=== PATIENT | female | born 1975 | race Hispanic/Latino ===

== ENCOUNTER 2023-07-01 20:26 | Emergency (ER) | payer OTHER ==
[~2023-07-01] VITALS: Ht 165.1 cm; Wt 74.4 kg
[2023-07-01] MEDS ORDERED: ONDANSETRON 4MG INJ ONE (20:52)
[2023-07-01] MEDS ORDERED: MORPHINE 2 MG SYG ONE (20:52)
[2023-07-01 20:55] LABS: BASOPHILS # (AUTO) 0.06 K/uL (0.00-0.20); BASOPHILS % (AUTO) 0.5 % (0.0-5.0); EOSINOPHILS # (AUTO) 0.33 K/uL (0.00-0.70); HEMATOCRIT 37.4 % (36-48); IMMATURE GRANULOCYTE ABSOLUTE 0.02 K/uL (0-1); LYMPHOCYTES # (AUTO) 3.1 K/uL (1.0-4.8); LYMPHOCYTES % (AUTO) 28.1 % (21.0-51.0); MEAN CORPUSCULAR HEMOGLOBIN 32.2 pg (27.0-33.0); MEAN CORPUSCULAR HGB CONC 31.8 g/dL (32.0-36.0); MEAN CORPUSCULAR VOLUME 101.1 fL (79-99); MONOCYTES # (AUTO) 0.6 K/uL (0.1-1.0); NEUTROPHILS % (AUTO) 63.2 % (40.0-77.0); PLATELET COUNT (AUTO) 182 K/uL (130-400); RED CELL DISTRIBUTION WIDTH 13.6 % (11.0-15.5)
[2023-07-01] MEDS ORDERED: ONDANSETRON 4MG INJ IVP ONE (21:00)
[2023-07-01] MEDS ORDERED: MORPHINE 2 MG SYG IVP ONE (21:00)
[2023-07-01 21:05] LABS: CREATININE 1.2 mg/dL (0.5-1.5); POTASSIUM 3.8 mmol/L (3.5-5.1)
[2023-07-01 21:14] LABS: BILIRUBIN,TOTAL 0.4 mg/dL (0.2-1.0); TOTAL PROTEIN, SERUM 6.9 g/dL (6.0-8.3)
[2023-07-01 21:27] LABS: AMYLASE 40 U/L (25-115); CREATINE KINASE, TOTAL 81 U/L (21-232)
[2023-07-01] MEDS ORDERED: IOHEXOL-350 75 ML VIAL IV ONE (21:41)
[2023-07-01] MEDS ORDERED: POLY17PO4 PO (22:55)
[2023-07-01] MEDS ORDERED: MAGNESIUM HYDROXIDE 30 ML/UDCUP PO SCH (23:00)
[2023-07-01] MEDS ORDERED: MAGNESIUM HYDROXIDE 30 ML/UDCUP ONE (23:04)
[2023-07-01 23:21] LABS: APPEARANCE,URINE CLOUDY (CLEAR); BILIRUBIN,URINE NEGATIVE (NEGATIVE); COLOR,URINE LIGHT-YELLOW (YELLOW); GLUCOSE, URINE (UA) NEGATIVE (NEGATIVE); KETONES,URINE NEGATIVE (NEGATIVE); LEUKOCYTE ESTERASE ,URINE 500 Leu/uL (NEGATIVE); NITRATE,URINE NEGATIVE (NEGATIVE); PROTEIN,URINE 20 mg/dL (NEGATIVE); UROBILINOGEN,URINE 0.2 mg/dL (0.2-1.0)
[2023-07-01 23:22] LABS: ADD UA MICROSCOPIC YES
[2023-07-01 23:23] VITALS: BP 114/60; PULSE 90; RESP 14; O2SAT 98
[2023-07-01 23:25] LABS: HCG,QUALITATIVE URINE NEGATIVE (NEGATIVE)
[2023-07-01] MEDS ORDERED: CEPHALEXIN 500 MG CAPSULE PO ONE (23:30)
[2023-07-01 23:34] LABS: BACTERIA,URINE None Seen /HPF (None Seen)
[2023-07-01 23:35] LABS: SQUAMOUS EPITHELIAL CELL,UR Few /HPF (0-2); WBC,URINE 26-50 /HPF (0-1)
[2023-07-01 23:36] LABS: NON-SQUAMOUS EPITHELIAL CELL Rare /HPF (0-2)
[2023-07-01] MEDS ORDERED: CEFTRIAXONE 1G VIAL ONE (23:39)
[2023-07-01] MEDS ORDERED: CEFU500T67 PO (23:40)
[2023-07-02] MEDS ORDERED: CEFTRIAXONE 1G VIAL IVPB ONE
== END 2023-07-01 23:56 | disposition home or self-care (01) ==
LOC: EDH 20:26
DX: K59.00 Constipation, unspecified (principal); Z90.49 Acquired absence of other specified parts of digestive tract; Z98.890 Other specified postprocedural states
CPT/HCPCS: 99284; 74177; 96374; 96375; 82150; 82550; 84484; 80053; 83690; 85025; 87077; 87088; 87186; 83605; 81001; 81025; 36415; 51701; 93005; J2270; J0696; J2405; Q9967

== ENCOUNTER 2024-09-07 11:19 | Emergency (ER) | payer OTHER ==
[~2024-09-07] VITALS: Ht 165.1 cm; Wt 83.6 kg
[~2024-09-07 11:19] MED LIST: CEFU500T67 PO; POLY17PO4 PO
--- NOTE | 2024-09-07 11:33 | ERN ---
General Chief Complaint: Wrist Pain/Injury Stated Complaint: PAIN IN WRIST DUE TO FALL Time Seen by MD: 11:20 Time Seen by Midlevel: 11:20 Source: patient History of Present Illness Initial Comments Patient is a 49-year-old female with a past medical history of multiple strokes presenting to the emergency department after she sustained a mechanical ground level fall one week ago. She states she was playing around with her dog when her dog got in the way and she fell onto her right side. She has been having pain to her right forearm. She does report hitting the right side of her head. Denies any loss of consciousness. She states she was chronic head pain due to your history of strokes but is concerned today because she did hit her head. She is on 2.5 mg of Eliquis twice a day. Denies any other concerns at this time. Allergies: Coded Allergies: No Known Allergies (Unverified Allergy, Unknown, 07/01/23) Home Meds Active Scripts Cefuroxime Axetil (Cefuroxime) 500 Mg Tablet, 500 MG PO BID, #20 TAB Prov:COSMO MCDONOUGH MD 07/01/23 Polyethylene Glycol 3350 (Miralax) 17 Gram Powd.pack, 17 GM PO DAILY, #30 UNITS Prov:COSMO MCDONOUGH MD 07/01/23 Past Medical History Past Medical History: CVA, Stroke, Other Medical History Other: SPLEEN INFARCT, FACTOR EIGHT. CVA X 5, BILATERAL WEAKNESS, SPEECH DIFFICUL Past Surgical History: Cholecystectomy, Other Surgical History Other: BRAIN Family History Family History: CAD Social History Social History: Negative, Lives with family ROS Dictation CONSTITUTIONAL: Negative except for HPI HEAD/FACE: Negative except for HPI EENT: Negative except for HPI RESPIRATORY: Negative except for HPI GASTROINTESTINAL/ABDOMINAL: Negative except for HPI GENITOURINARY: Negative except for HPI MUSCULOSKELETAL: Negative except for HPI INTEGUMENTARY: Negative except for HPI NEUROLOGICAL/PSYCH: Negative except for HPI HEMATOLOGIC/LYMPHATIC: Negative except for HPI All Systems Negative, Except as noted above. 13 point review of systems assessed and all negative except for above. Physical Exam Physical Exam Dictation Vital Signs reviewed General Appearance: Alert, oriented x 3, no acute distress, well developed, nourished. Head and Face: non-traumatic. Eyes: PERRL, pink conjunctivas, eyelid no trauma, anterior chamber with arcus senilis. Ears: Pinnas intact and no signs of trauma or erythema ear canals clear and no discharge TM no erythema Nose: No discharge, no bleeding. Oropharynx: Mouth normal, tongue pink, pharynx clear,no erythema, tonsils no exudates, no abscesses noted, mucous membrane moist Neck: Supple, non-tender, no thyromegaly, no masses, no JVD, no bruits Breast:Deferred Chest:No tenderness, no crepitus, no paradoxical movement, no retractions Lungs:Clear, well-ventilated, symmetric, no rales, no wheezing, no rhonchi, no stridor, good breath sounds bilaterally Heart: Regular rate, regular rhythm, no murmur, no gallops Vascular: no peripheral edema, Abdomen: Soft, positive bowel sounds, nondistended, no guarding, nontender, no rebound, no masses no hepatomegaly, no splenomegaly, no Peterson's sign, no hernias. Rectal: Deferred Genital: Deferred Neurological: Normal speech, motor function intact, sensory function intact Musculoskeletal: Neck nontender, full range of motion, back nontender, full range of motion, Extremities tenderness over the right distal forearm, no deformity noted, distal pulses intact, decreased sensation secondary to previous stroke Skin: Color pink, dry, no turgor, no rash, no lacerations, no abrasions, no contusions. Lymphatic: Deferred MDM MDM: Differential diagnosis: Closed head injury, fracture, contusion There are no social concerns with this patient. Prescription drug management Prescriptions will include: None Medical management and examination interpretation discussions were had by me with other qualified healthcare professionals as indicated for the patient's care. ED Course Orders Procedure Category Date Status Time Ct Head/Brain W/O CT 09/07/24 Resulted Contrast 11:28 Forearm 2vws Rt RAD 09/07/24 Taken 11:28 Vital Signs Date Time Temp Pulse Resp B/P (MAP) Pulse Ox O2 Delivery O2 Flow Rate FiO2 09/07/24 11:49 98.2 92 16 125/80 96 Room Air* 0 21 09/07/24 11:24 97.9 99 16 125/80 95 Room Air 0 [facility] [address] [place] [id number] IMAGING REPORT Signed PATIENT: EVIE GRAMAJO MR#: [id number] : 1975 SEX: F AGE: 49 LOCATION: [facility] ORDER 28 [facility]US: [facility] REPORT#: [id number] SERVICE 27 REASON: fall ORDERING PHYSICIAN: JET ZUÑIGA PROCEDURE: FORARMR - FOREARM 2VWS RT FOREARM 2VWS RT HISTORY: Status post fall COMPARISON: None TECHNIQUE: 2 images of right forearm were obtained. FINDINGS: There is no acute displaced fracture or dislocation. Radiocarpal joint space narrowing is seen. Degenerative changes are seen. IMPRESSION: 1. Findings as described above. DICTATED BY: GURMEET STONER MD DATE: 09/07/241216 ELECTRONICALLY SIGNED BY: GURMEET STONER MD DATE: 09/07/241221 [place] [address] IMAGING REPORT Signed PATIENT: EVIE GRAMAJO MR#: [id number] : 1975 SEX: F AGE: 49 LOCATION: ED ORDER 28 STATUS: REG ER REPORT#: [id number] SERVICE 27 REASON: fall/right sided head injury on blood thinners, hx of icb ORDERING PHYSICIAN: JET ZUÑIGA PROCEDURE: HEAD WO - CT HEAD/BRAIN W/O CONTRAST CT HEAD/BRAIN W/O CONTRAST HISTORY: Injury COMPARISON: None TECHNIQUE: Multiple sequential axial images of the head were obtained from the base of the skull through vertex. Patient was not given contrast through intravenous route. FINDINGS: The ventricles and extraventricular CSF spaces are dilated consistent with cerebral atrophy. Nonspecific white matter changes seen. Encephalomalacia changes are seen in the temporal lobes bilaterally. There is no midline shift, mass effect or herniation. No acute intracranial bleed is seen. Visualized portion of the paranasal sinuses are grossly within normal limits. IMPRESSION: 1. No acute intracranial bleed is seen. 2. Atrophy with white matter changes. Bilateral temporal lobe encephalomalacia changes. CT was performed with one or more following dose reduction techniques: automated exposure control, adjustment of the mA and kv according to patient's size, or use of a iterative reconstruction technique. DICTATED BY: GURMEET STONER MD DATE: 09/07/241209 ELECTRONICALLY SIGNED BY: GURMEET STONER MD DATE: 09/07/24 1219 DX & DISP Disposition: Discharge Departure Impression: Primary Impression: Fall Additional Impressions: Forearm contusion, Scalp contusion Condition: Stable Additional Instructions: Your right forearm x-ray does not show any evidence of an acute fracture or dislocation. Your CT scan of the head does not show any acute intracranial bleed or any other acute intracranial abnormality. You may take Tylenol as needed for pain. Follow up with your primary care doctor in 2-3 days for repeat evaluation. If you develop any new or worsening symptoms please report to the ER for further evaluation. Referrals: WILMAN PETERSON MD (PCP) Time of Disposition: 12:21 I have reviewed the case, and I agree with, Diagnosis and Plan I performed the substantive portion of the visit. I have reviewed and personally made and approve the management plan that is documented in the note by myself or the NATASHA. I acknowledge for responsibility for the patient's management plan. JET ZUÑIGA Sep 07, 2024 11:33
[2024-09-07 11:49] VITALS: BP 125/80; PULSE 92; RESP 16; TEMP 98.3; O2SAT 96
--- NOTE | 2024-09-07 12:19 | HMCIMG ---
CT HEAD/BRAIN W/O CONTRAST HISTORY: Injury COMPARISON: None TECHNIQUE: Multiple sequential axial images of the head were obtained from the base of the skull through vertex. Patient was not given contrast through intravenous route. FINDINGS: The ventricles and extraventricular CSF spaces are dilated consistent with cerebral atrophy. Nonspecific white matter changes seen. Encephalomalacia changes are seen in the temporal lobes bilaterally. There is no midline shift, mass effect or herniation. No acute intracranial bleed is seen. Visualized portion of the paranasal sinuses are grossly within normal limits. IMPRESSION: 1. No acute intracranial bleed is seen. 2. Atrophy with white matter changes. Bilateral temporal lobe encephalomalacia changes. CT was performed with one or more following dose reduction techniques: automated exposure control, adjustment of the mA and kv according to patient's size, or use of a iterative reconstruction technique.
--- NOTE | 2024-09-07 12:22 | HMCIMG ---
FOREARM 2VWS RT HISTORY: Status post fall COMPARISON: None TECHNIQUE: 2 images of right forearm were obtained. FINDINGS: There is no acute displaced fracture or dislocation. Radiocarpal joint space narrowing is seen. Degenerative changes are seen. IMPRESSION: 1. Findings as described above.
== END 2024-09-07 12:45 | disposition home or self-care (01) ==
LOC: EDH 11:19
DX: S50.11XA Contusion of right forearm, initial encounter (principal); S00.03XA Contusion of scalp, initial encounter; Z79.01 Long term (current) use of anticoagulants; Z86.73 Personal history of transient ischemic attack (TIA), and cerebral infarction without residual deficits; Z90.49 Acquired absence of other specified parts of digestive tract; W18.39XA Other fall on same level, initial encounter; Y93.89 Activity, other specified; Y92.89 Other specified places as the place of occurrence of the external cause; Y99.8 Other external cause status
CPT/HCPCS: 70450; 73090; 99284

== ENCOUNTER 2025-06-29 15:08 | Emergency (ER) | payer OTHER ==
[~2025-06-29] VITALS: Ht 165.1 cm; Wt 86.2 kg
[~2025-06-29 15:08] MED LIST changes: +AMIT75TA6 PO; +ATOR40TA69 PO; +BENZ200C53 PO; -CEFU500T67 PO; +HYDR-4068 PO; +LEVO75CA6 PO; +ONDA-243 PO; -POLY17PO4 PO; +QUET25TA36 PO; +[UNRECOGNIZED DRUG - CODE] IJ; +[UNRECOGNIZED DRUG - CODE] PO
--- NOTE | 2025-06-29 15:25 | ERN ---
ED Note History of Present Illness Stated Complaint: TOE PAIN Chief Complaint: Toe Pain/Injury Time Seen by MD: 15:09 Dictation: PATIENT IS A 50-YEAR-OLD FEMALE HERE WITH COMPLAINTS OF A POSSIBLE STUBBING INJURY AND PAIN TO HER LEFT 5TH TOE WITH BRUISING ONSET WAS YESTERDAY. SHE STATES THE DAY BEFORE SHE WAS FINE. SHE STATES SHE HAS HAS A HISTORY OF A PRIOR STROKE WITH A CHRONIC LEFT HEMIPARESIS AND MAY HAVE STOPPED IT. CAP REFILL IS BRISK TO THE TOE. SKIN IS INTACT NO FOOT PAIN. STATES SHE HAS A SLIGHT HEADACHE AND HAS NOT TAKEN ANYTHING WOULD LIKE SOME FOR PAIN TO Allergies: Coded Allergies: No Known Allergies (Unverified Allergy, Unknown, 07/01/23) Home Meds Reported Medications Hydrocodone/Acetaminophen (Hydrocodon-Acetaminophn 10-325) 10 Mg-325 Mg Tablet, 1 TAB PO QIDP PRN for pain for 5 Days, #20 TAB 0 Refills 03/12/25 Octreotide Acetate (Octreotide Acetate) 200 Mcg/Ml Vial, 200 MCG IJ BID, VIAL 03/12/25 Morphine Sulfate (Morphine Sulfate 15 mg Tab.sa) 15 Mg Tablet.er, 1 TAB PO [id number] PRN for pain for 5 Days, #10 TAB 0 Refills 03/12/25 Quetiapine Fumarate (Quetiapine Fumarate) 25 Mg Tablet, 2 TAB PO HS for 30 Days, #30 TAB 0 Refills 03/12/25 Atorvastatin Calcium (LIPITOR) 40 Mg Tablet, 1 TAB PO DAILY for 30 Days, #30 TAB 0 Refills 03/12/25 Benzonatate (Benzonatate) 200 Mg Capsule, 1 CAP PO TIDP PRN for cough, #21 CAP 0 Refills 03/12/25 Amitriptyline HCl (Amitriptyline HCl) 75 Mg Tablet, 1 TAB PO HS for 30 Days, #30 TAB 0 Refills 03/12/25 Ondansetron (Ondansetron Odt) 4 Mg Tab.rapdis, 1 TAB PO Q6HPRN PRN for nausea/vomiting for 4 Days, #16 TAB 0 Refills 03/12/25 Levothyroxine Sodium (Levothyroxine) 75 Mcg Capsule, 1 TAB PO DAILY for 30 Days, #30 CAP 0 Refills 03/12/25 Past Medical History Past Medical History: CVA, Stroke, Other Additional Past Medical Hx: SPLEEN INFARCT, FACTOR EIGHT. CVA X 5, BILATERAL WEAKNESS, SPEECH DIFFICUL Surgical History: Cholecystectomy, Other Surgical History Other: BRAIN Family History: CAD Social History: Negative, Lives with family History: Not Applicable RN Note Reviewed/Agreed w/PFSH: Yes Review of System Dictation CONSTITUTIONAL: NEGATIVE EXCEPT FOR HPI HEAD/FACE: NEGATIVE EXCEPT FOR HPI EENT: NEGATIVE EXCEPT FOR HPI RESPIRATORY: NEGATIVE EXCEPT FOR HPI GASTROINTESTINAL/ABDOMINAL: NEGATIVE EXCEPT FOR HPI GENITOURINARY: NEGATIVE EXCEPT FOR HPI MUSCULOSKELETAL: NEGATIVE EXCEPT FOR HPI LEFT 5TH TOE PAIN ECCHYMOSIS INTEGUMENTARY: NEGATIVE EXCEPT FOR HPI NEUROLOGICAL/PSYCH: NEGATIVE EXCEPT FOR HPI HEMATOLOGIC/LYMPHATIC: NEGATIVE EXCEPT FOR HPI ALL SYSTEMS NEGATIVE, EXCEPT NOTED ABOVE. 13 POINT REVIEW OF SYSTEMS ASSESSED AND ALL NEGATIVE EXCEPT FOR ABOVE. Initial Vital Sign VS Vital Signs Date Time Temp Pulse Resp B/P (MAP) Pulse Ox O2 Delivery O2 Flow Rate FiO2 06/29/25 15:08 97.5 107 20 138/66 100 Room Air 06/29/25 16:17 0 21 Physical Exam Dictation VITAL SIGNS REVIEWED GENERAL APPEARANCE: ALERT, ORIENTED X 3, MILD ACUTE DISTRESS, WELL DEVELOPED, NOURISHED. HEAD AND FACE: NON-TRAUMATIC. EYES: PERRL, PINK CONJUNCTIVAS, EYELID NO TRAUMA, ANTERIOR CHAMBER WITH ARCUS SENILIS. EARS: PINNAS INTACT AND NO SIGNS OF TRAUMA OR ERYTHEMA EAR CANALS CLEAR AND NO DISCHARGE TM NO ERYTHEMA NOSE: NO DISCHARGE, NO BLEEDING. OROPHARYNX: MOUTH NORMAL, TONGUE PINK, PHARYNX CLEAR,NO ERYTHEMA, TONSILS NO EXUDATES, NO ABSCESSES NOTED, MUCOUS MEMBRANE MOIST NECK: SUPPLE, NON-TENDER, NO THYROMEGALY, NO MASSES, NO JVD, NO BRUITS BREAST:DEFERRED CHEST:NO TENDERNESS, NO CREPITUS, NO PARADOXICAL MOVEMENT, NO RETRACTIONS LUNGS:CLEAR, WELL-VENTILATED, SYMMETRIC, NO RALES, NO WHEEZING, NO RHONCHI, NO STRIDOR, GOOD BREATH SOUNDS BILATERALLY HEART: REGULAR RATE, REGULAR RHYTHM, NO MURMUR, NO GALLOPS VASCULAR: NO PERIPHERAL EDEMA, ABDOMEN: SOFT, POSITIVE BOWEL SOUNDS, NONDISTENDED, NO GUARDING, NONTENDER, NO REBOUND, NO MASSES NO HEPATOMEGALY, NO SPLENOMEGALY, NO GRUBER'S SIGN, NO HERNIAS. RECTAL: DEFERRED GENITAL: DEFERRED NEUROLOGICAL: NORMAL SPEECH, CHRONIC LEFT HEMIPARESIS FROM STROKE IN JANUARY 2025. MUSCULOSKELETAL: NECK NONTENDER, FULL RANGE OF MOTION, BACK NONTENDER, FULL RANGE OF MOTION, EXTREMITIES: LEFT 5TH TOE PAIN WITH A ECCHYMOSIS NOTED. CAP REFILL LESS THAN 2 SECONDS SKIN: COLOR PINK, DRY, NO TURGOR, NO RASH, NO LACERATIONS, NO ABRASIONS, NO CONTUSIONS. LYMPHATIC: DEFERRED Results (Laboratory/Radiology) Laboratory/Radiology Laboratory Tests Test 06/29/25 15:32 White Blood Count 8.0 K/uL (4.8-10.8) Red Blood Count 4.17 MIL/uL (4.00-5.50) Hemoglobin 12.9 g/dL (12.0-16.0) Hematocrit 41.2 % (36-48) Mean Corpuscular Volume 98.8 fL (79-99) Mean Corpuscular Hemoglobin 30.9 pg (27.0-33.0) Mean Corpuscular Hemoglobin Concent 31.3 g/dL (32.0-36.0) L Red Cell Distribution Width 13.3 % (11.0-15.5) Platelet Count 187 K/uL (130-400) Mean Platelet Volume 11.1 fL (7.5-10.5) H Immature Granulocyte % (Auto) 0.4 % (0-1) Neutrophils (%) (Auto) 68.9 % (40.0-77.0) Lymphocytes (%) (Auto) 22.8 % (21.0-51.0) Monocytes (%) (Auto) 4.4 % (3.0-13.0) Eosinophils (%) (Auto) 2.9 % (0.0-8.0) Basophils (%) (Auto) 0.6 % (0.0-5.0) Neutrophils # (Auto) 5.5 K/uL (1.8-7.7) Lymphocytes # (Auto) 1.8 K/uL (1.0-4.8) Monocytes # (Auto) 0.4 K/uL (0.1-1.0) Eosinophils # (Auto) 0.23 K/uL (0.00-0.70) Basophils # (Auto) 0.05 K/uL (0.00-0.20) Absolute Immature Granulocyte (auto 0.03 K/uL (0-1) Nucleated Red Blood Cells 0.0 % (0.0-0.19) Sodium Level 141 mmol/L (136-145) Potassium Level 3.5 mmol/L (3.5-5.1) Chloride Level 103 mmol/L (101-111) Carbon Dioxide Level 30 mmol/L (21-32) Blood Urea Nitrogen 9 mg/dL (7-18) Creatinine 1.1 mg/dL (0.5-1.0) H Glomerular Filtration Rate Calc 60 mL/min (>90) Random Glucose 117 mg/dL (70-105) H Total Calcium 8.7 mg/dL (8.5-10.1) 1735/LEFT FOOT X-RAY NEGATIVE FOR FRACTURE Labs Reviewed?: Yes ED Course ED Course Orders Procedure Category Date Status Time Foot Comp 3+Vws Lt RAD 06/29/25 Taken 15:23 Cbc With Differential LAB 06/29/25 Complete 15:23 Basic Metabolic Panel LAB 06/29/25 Complete 15:23 Acetaminophen 500mg PHA 06/29/25 Complete Tab (Tylenol 500mg T 15:30 Current Medications Medications (Trade) Dose Ordered Sig/Mel Route PRN Reason Start Time Stop Time Status Last Admin Dose Admin Acetaminophen (TYLenol 500MG TAB) 1,000 mg ONCE ONCE PO 06/29/25 15:30 06/29/25 15:31 DC Vital Signs Date Time Temp Pulse Resp B/P (MAP) Pulse Ox O2 Delivery O2 Flow Rate FiO2 06/29/25 16:17 97.5 107 20 138/66 100 Room Air* 0 21 06/29/25 15:08 97.5 107 20 138/66 100 Room Air 1735/PATIENT WILL BE DISCHARGED HOME WITH CONTUSION TOE. Medical Decision Making MDM MEDICAL DECISION-MAKING BASED ON BASIC LABS AND X-RAY OF LEFT FOOT. LABS ARE UNREMARKABLE FOR INFECTION THERE IS CHRONIC KIDNEY DISEASE X-RAY NEGATIVE DX & DISP Disposition: Discharge Departure Impression: Primary Impression: Contusion of toe of left foot Additional Impression: Chronic kidney disease Condition: Stable Additional Instructions: FOLLOW-UP WITH PRIMARY CARE PROVIDER IN 1 TO 2 DAYS. TAKE MEDICATIONS DIRECTED HERE IN THE EMERGENCY ROOM. OKAY TO CONTINUE HOME MEDICATIONS UNLESS OTHERWISE DISCUSSED DURING YOUR VISIT IN THE EMERGENCY ROOM TODAY. RETURN TO YOUR NEAREST EMERGENCY ROOM IF SYMPTOMS WORSEN OR IF THERE IS NO IMPROVEMENT. CALL 911 IF YOU NEED IMMEDIATE ASSISTANCE. TAKE TYLENOL OR MOTRIN [id number] NEEDED AND IF NO CONTRAINDICATIONS ARE PRESENT. INCREASE ORAL HYDRATION. A WOUND CULTURE OR URINE CULTURE WAS ORDERED HERE IN THE EMERGENCY ROOM DEPARTMENT PLEASE FOLLOW-UP WITH PRIMARY CARE PROVIDER AND ADVISE THEM TO GET REPEAT PORTS FROM OUR FACILITY. IF YOU HAD ANY TOBY WRAP/SPLINTS THAT WERE APPLIED HERE, PLEASE DO NOT REMOVE THEM UNTIL YOU SEE YOUR PRIMARY CARE OR SPECIALTY. DIET AND ACTIVITY TOLERATED. FOLLOW UP WITH ONE OF THE DOCTORS ON THE LIST PROVIDED YOU IN THE NEXT 1-2 DAYS FOR MANAGEMENT Referrals: SELF,REFERRAL (PCP) Time of Disposition: 17:36 I have reviewed the case, and I agree with, Diagnosis and Plan PARISA MOROCHO [employer] MACHINE OPERATOR Jun 29, 2025 15:25
[2025-06-29 16:10] LABS: IMMATURE GRANULOCYTE ABSOLUTE 0.03 K/uL (0-1); NUCLEATED RED BLOOD CELLS 0.0 % (0.0-0.19); PLATELET COUNT (AUTO) 187 K/uL (130-400); RED BLOOD CELL COUNT(AUTO) 4.17 MIL/uL (4.00-5.50); RED CELL DISTRIBUTION WIDTH 13.3 % (11.0-15.5); WHITE BLOOD COUNT (AUTO) 8.0 K/uL (4.8-10.8)
[2025-06-29 16:21] LABS: CREATININE 1.1 mg/dL (0.5-1.0); GLOMERULAR FILTR. RATE CALC 60.0 mL/min (>90); GLUCOSE,RANDOM 117.0 mg/dL (70-105); SODIUM SERUM 141.0 mmol/L (136-145); UREA NITROGEN, BLOOD 9.0 mg/dL (7-18)
[2025-06-29 17:51] VITALS: BP 127/62; PULSE 92; RESP 20; TEMP 97.5; O2SAT 100
--- NOTE | 2025-06-29 17:53 | HMCIMG ---
EXAM: CR right foot, 3 View. CLINICAL HISTORY: STUBBED INJURY TO LEFT 5TH TOE COMPARISON: None provided. FINDINGS: BONES: No acute fracture or aggressive appearing osseous lesion. JOINTS: The joint spaces appear within normal limits. No dislocation. SOFT TISSUES: The soft tissues are unremarkable. IMPRESSION: No acute osseous abnormality. /[place]
== END 2025-06-29 17:57 | disposition home or self-care (01) ==
LOC: EDH 15:08
DX: S90.122A Contusion of left lesser toe(s) without damage to nail, initial encounter (principal); S90.32XA Contusion of left foot, initial encounter; N18.9 Chronic kidney disease, unspecified; Z79.899 Other long term (current) drug therapy; Z86.73 Personal history of transient ischemic attack (TIA), and cerebral infarction without residual deficits; Z79.890 Hormone replacement therapy; Z90.49 Acquired absence of other specified parts of digestive tract; X58.XXXA Exposure to other specified factors, initial encounter; Y93.89 Activity, other specified; Y92.89 Other specified places as the place of occurrence of the external cause; Y99.8 Other external cause status
CPT/HCPCS: 36415; 73630; 80048; 85025; 99283